=== PATIENT | male | born 1940 | race Caucasian/White ===

== ENCOUNTER 2021-06-04 08:39 | Outpatient (CLI) | payer MEDICARE, BC | END 2021-06-04 08:40 | disposition home or self-care (01) | LOC: CSHCT 08:39 | PROVIDERS: ATTEND Urology | DX: N40.1 Benign prostatic hyperplasia with lower urinary tract symptoms (principal); R31.29 Other microscopic hematuria; Q61.3 Polycystic kidney, unspecified; I71.4 Abdominal aortic aneurysm, without rupture; K57.30 Diverticulosis of large intestine without perforation or abscess without bleeding | CPT/HCPCS: 74178; 82565 ==